=== PATIENT | female | born 2000 | race Caucasian/White ===

== ENCOUNTER 2021-07-20 15:41 | Outpatient (CLI) | payer BC | END 2021-07-20 17:32 | disposition home or self-care (01) | LOC: GENOP 15:41 | DX: O99.891 Other specified diseases and conditions complicating pregnancy (principal); R03.0 Elevated blood-pressure reading, without diagnosis of hypertension; M54.9 Dorsalgia, unspecified; Z3A.35 35 weeks gestation of pregnancy | CPT/HCPCS: 81001; G0463 ==

== ENCOUNTER 2021-08-05 21:13 | Inpatient (IN) | payer BC ==
[~2021-08-05] VITALS: Ht 162.6 cm; Wt 72.6 kg
[2021-08-05 22:38] LABS: HEMOGLOBIN 14.2 gm/dl (12.3-15.3); RED BLOOD COUNT 4.38 M/UL (4.00-5.10); WHITE BLOOD COUNT 15.2 K/UL (4.5-11.0)
[2021-08-05] MEDS ORDERED: PRENATAL VITAM1 EAC3 PO (23:01)
[2021-08-07] MEDS ORDERED: PERCOCET 5/325 T1 EA PO (07:32)
[2021-08-07] MEDS ORDERED: HEMOCYTE324 MG PO (07:32)
[2021-08-07] MEDS ORDERED: DULCOLAX STOOL100 MG PO (07:32)
[2021-08-07] MEDS ORDERED: IBUPROFEN800 MG PO (07:32)
[2021-08-08 07:55] LABS: HEMOGLOBIN 10.3 gm/dl (12.3-15.3)
== END 2021-08-08 13:31 | disposition home or self-care (01) | DRG 787 ==
LOC: GENOP 21:13 → CDU 22:04 → OB 08-06 01:16
PROVIDERS: ADMIT Obstetrics & Gynecology
PROC: 10D00Z1 Extraction of Products of Conception, Low, Open Approach (ICD-10-PCS; principal; 2021-08-05)
PROC: 4A1HXCZ Monitoring of Products of Conception, Cardiac Rate, External Approach (ICD-10-PCS; 2021-08-05)
DX: O42.92 Full-term premature rupture of membranes, unspecified as to length of time between rupture and onset of labor (principal); O99.354 Diseases of the nervous system complicating childbirth; O62.1 Secondary uterine inertia; O99.02 Anemia complicating childbirth; Z20.822 Contact with and (suspected) exposure to COVID-19; Z3A.37 37 weeks gestation of pregnancy; Z37.0 Single live birth; Z83.3 Family history of diabetes mellitus; Z82.49 Family history of ischemic heart disease and other diseases of the circulatory system; O66.40 Failed trial of labor, unspecified
CPT/HCPCS: 36415; 81001; 82800; 85014; 85018; 85025; 90471; C9113; J0690; J1885; J2210; J2250; J2274; J2370; J2405; J2590; J2795; J7120; J7121; U0002